=== PATIENT | female | born 1980 | race Asian ===

== ENCOUNTER 2017-01-18 07:50 | Day surgery (SDC) | payer OTHER ==
[~2017-01-18] VITALS: Ht 157.5 cm; Wt 54.4 kg
[~2017-01-18 07:50] MED LIST: ENDOCET 5-3251 EACH PO; IBUPROFEN800 MG PO; PRENATAL TABLE1 EAC3 PO
[2017-01-18 08:48] LABS: EOSINOPHIL (%) 7.8 % (0-5); EOSINOPHIL COUNT 0.5 K/uL (0-0.3); IMMATURE GRANULOCYTE (%) 0.3 % (0.0-0.7); INSTRUMENT ABS NEUTROPHIL CT 3.9 K/uL; LYMPHOCYTE COUNT 1.6 K/uL (1.0-2.8); MCH 27.9 PG (29.0-34.0); MCHC 32.8 G/DL (30.0-36.0); MCV 85.3 FL (83-99); MEAN PLAT.VOLUME 9.8 uM^3 (9.5-12.4); MONOCYTE (%) 5.3 % (3-12); MONOCYTE COUNT 0.3 K/uL (0-0.8); NEUTROPHIL (%) 60.9 % (45-76); NEUTROPHIL COUNT 3.9 K/uL (1.8-6.4); PLATELET COUNT 256 K/uL (156-360); RBC DIS.WIDTH-CV 12.6 % (11.8-14.6); RBC DIS.WIDTH-SD 38.6 % (39-53); RED BLOOD COUNT 4.69 M/uL (3.80-5.20); WHITE BLOOD COUNT 6.4 K/uL (4.1-10.2)
[2017-01-18 09:11] VITALS: BP 130/94
[2017-01-18] MEDS ORDERED: IBUPROFEN800 MG PO (10:53)
[2017-01-18] MEDS ORDERED: ENDOCET 5-3251 EACH PO (10:53)
[2017-01-18 12:05] VITALS: BP 152/90
[2017-01-18 13:05] VITALS: BP 127/82
[2017-01-18 15:05] VITALS: BP 128/76
== END 2017-01-18 15:35 | disposition home or self-care (01) ==
LOC: SDC
PROVIDERS: Obstetrics & Gynecology
PROC: 0U574ZZ Destruction of Bilateral Fallopian Tubes, Percutaneous Endoscopic Approach (ICD-10-PCS; principal; 2017-01-18)
DX: Z30.2 Encounter for sterilization (principal)
CPT/HCPCS: 84702; 85025; 93005; J0330; J1100; J1170; J1885; J2250; J2405; J3010